=== PATIENT | female | born 1945 | race Hispanic/Latino ===

== ENCOUNTER 2021-04-16 16:29 | Emergency (ER) | payer MEDICARE ==
[2021-04-16] MEDS ORDERED: Acetaminophen 500 MG TAB ONE (17:25)
== END 2021-04-16 20:14 | disposition home or self-care (01) ==
LOC: ERS 16:29
DX: S01.81XA Laceration without foreign body of other part of head, initial encounter (principal); M19.90 Unspecified osteoarthritis, unspecified site; E03.9 Hypothyroidism, unspecified; D64.9 Anemia, unspecified; I10 Essential (primary) hypertension; E78.5 Hyperlipidemia, unspecified
CPT/HCPCS: 70450